=== PATIENT | male | born 1995 | race Caucasian/White ===

== ENCOUNTER 2019-07-14 | Emergency (ER) | payer SELFPAY ==
--- NOTE | 2019-07-14 22:59 | EDPHYS ---
Physician Documentation [facility] Name: Amado Murray Age: 24 yrs Sex: Male : 1995 Arrival Date: 07/14/2019 Time: 17:03 Bed 15 Private MD: ED Physician Breezy Cruz HPI: 07/14 17:30 This 24 yrs old Male presents to ER via Ambulatory with complaints of cp Medication Refill. 17:30 The patient presents to the emergency department requesting refill(s) for: Zyprexa and cp Trileptal. The patient chronically suffers from Bipolar Disorder. Patient reports running out of Zyprexa and Trileptal medications 1 week ago. Has appt tomorrow. Denies any suicidal or homicidal ideations, denies visual or auditory hallucinations. Historical: - Allergies: 17:10 No Known Allergies; sv - PMHx: 17:10 Bipolar disorder; ADD/ADHD; sv - PSHx: 17:10 None; sv - Immunization history:: Adult Immunizations up to date. - Coronavirus screen:: The patient has NOT traveled to [place] in the past 14 days. Proceed with normal triage process as indicated. The patient has NOT had contact with known/suspected case of Coronavirus? Proceed with normal triage procedures. - Social history:: Smoking status: Patient denies any tobacco usage or history of. - Ebola Screening: : No symptoms or risks identified at this time. ROS: 17:33 Eyes: Negative for injury, pain, redness, and discharge. cp 17:33 Constitutional: Negative for chills, fever, poor PO intake. 17:33 ENT: Negative for drainage from ear(s), ear pain, sore throat, difficulty swallowing, difficulty handling secretions. 17:33 Cardiovascular: Negative for chest pain, palpitations. 17:33 Respiratory: Negative for cough, shortness of breath, wheezing. 17:33 Abdomen/GI: Negative for abdominal pain, vomiting, diarrhea, constipation. 17:33 Skin: Negative for rash. 17:33 Neuro: Negative for altered mental status, headache. 17:33 Psych: Negative for auditory hallucinations, visual hallucinations, homicidal ideation, suicide gesture, suicidal ideation. 17:33 All other systems are negative. Exam: 17:34 Head/Face: Normocephalic, atraumatic. cp 17:34 Constitutional: The patient appears in no acute distress, alert, awake, non-toxic, well developed, well nourished. 17:34 Eyes: Periorbital structures: appear normal, Pupils: equal, round, and reactive to light and accomodation, Extraocular movements: intact throughout, Conjunctiva: normal, no exudate, no injection, Lids and lashes: appear normal, bilaterally. 17:34 ENT: External ear(s): are unremarkable, Nose: is normal, Mouth: Lips: moist, Oral mucosa: pink and intact, moist, Posterior pharynx: is normal, airway is patent. 17:34 Chest/axilla: Inspection: normal, Palpation: is normal, no crepitus, no tenderness. 17:34 Cardiovascular: Rate: normal, Rhythm: regular. 17:34 Respiratory: the patient does not display signs of respiratory distress, Respirations: normal, no use of accessory muscles, labored breathing, is not present, Breath sounds: are clear throughout, no decreased breath sounds. 17:34 Abdomen/GI: Exam negative for discomfort, distension, guarding, Inspection: abdomen appears normal. 17:34 Neuro: Orientation: to person, place \T\ time. Mentation: is normal, Cerebellar function: is grossly normal, Motor: moves all fours, strength is normal, Sensation: is normal, Gait: is steady, at a normal pace, without difficulty. Vital Signs: 17:10 BP 152 / 102; Pulse 80; Resp 16; Temp 97.3; Pulse Ox 100% ; Weight 79.38 kg; Height 5 sv ft. 11 in. (180.34 cm); 17:43 BP 146 / 87; Pulse 76; Resp 18; Pulse Ox 100% on R/A; Pain 0/10; em 17:10 Body Mass Index 24.41 (79.38 kg, 180.34 cm) sv MDM: 17:28 Patient medically screened. cp 17:39 Data reviewed: vital signs, nurses notes, and as a result, I will discharge patient. cp Administered Medications: No medications were administered Disposition: 07/15 06:52 Co-signature as Attending Physician, Breezy Cruz MD I agree with the assessment and kdr plan of care. Disposition: 07/14/19 17:39 Discharged to Home. Impression: Patient's intentional underdosing of medication regimen for other reason. - Condition is Stable. - Prescriptions for Zyprexa 5 mg Oral tablet - take 1 tablet by ORAL route once daily in the evening; 20 tablet. Trileptal 300 mg Oral Tablet - take 1 tablet by ORAL route every 12 hours; 60 tablet. - Medication Reconciliation Form, Thank You Letter, Antibiotic Education, Prescription Opioid Use form. - Follow up: Private Physician; When: Tomorrow; Reason: Recheck today's complaints. - Problem is chronic. - Symptoms are unchanged. Signatures: Yaritza Parsons RN RN sv Breezy Cruz MD MD kdr Sherwin Hilton RN RN em Carloz Mccollum PA PA cp Corrections: (The following items were deleted from the chart) 07/14 17:55 17:39 07/14/2019 17:39 Discharged to Home. Impression: Patient's intentional em underdosing of medication regimen for other reason. Condition is Stable. Prescriptions for Zyprexa 5 mg Oral tablet - take 1 tablet by ORAL route once daily in the evening; 20 tablet, Trileptal 300 mg Oral Tablet - take 1 tablet by ORAL route every 12 hours; 60 tablet. and Forms are Medication Reconciliation Form, Thank You Letter, Antibiotic Education, Prescription Opioid Use. Follow up: Private Physician; When: Tomorrow; Reason: Recheck today's complaints. Problem is chronic. Symptoms are unchanged. cp
--- NOTE | 2019-07-14 22:59 | ER ---
Nurse's Notes [facility] Name: Amado Murray Age: 24 yrs Sex: Male : 1995 Arrival Date: 07/14/2019 Time: 17:03 Bed 15 Private MD: Diagnosis: Patient's intentional underdosing of medication regimen for other reason Presentation: 07/14 17:08 Presenting complaint: Patient states: has been out of his Zyprexa 5 mg nightly and sv Trileptal 300 mg Q6h and is supposed to see [facility] tomorrow but isn't feeling well today. Transition of care: patient was not received from another setting of care. Onset of symptoms was July 14, 2019. Care prior to arrival: None. 17:08 Method Of Arrival: Ambulatory sv 17:08 Acuity: IFTIKHAR 4 sv 17:37 Risk Assessment: Do you want to hurt yourself or someone else? Patient reports no em desire to harm self or others. Initial Sepsis Screen: Does the patient meet any 2 criteria? No. Patient's initial sepsis screen is negative. Does the patient have a suspected source of infection? No. Patient's initial sepsis screen is negative. Triage Assessment: 17:11 General: Appears in no apparent distress. comfortable, Behavior is calm, cooperative, sv appropriate for age. Pain: Denies pain. Neuro: Level of Consciousness is awake, alert, obeys commands, Gait is steady. Respiratory: Respiratory effort is even, unlabored. Historical: - Allergies: 17:10 No Known Allergies; sv - PMHx: 17:10 Bipolar disorder; ADD/ADHD; sv - PSHx: 17:10 None; sv - Immunization history:: Adult Immunizations up to date. - Coronavirus screen:: The patient has NOT traveled to [place] in the past 14 days. Proceed with normal triage process as indicated. The patient has NOT had contact with known/suspected case of Coronavirus? Proceed with normal triage procedures. - Social history:: Smoking status: Patient denies any tobacco usage or history of. - Ebola Screening: : No symptoms or risks identified at this time. Screenin:36 Abuse screen: Denies threats or abuse. Nutritional screening: No deficits noted. em Tuberculosis screening: No symptoms or risk factors identified. Fall Risk None identified. Assessment: 17:28 General: Appears in no apparent distress. comfortable, Behavior is calm, cooperative, em appropriate for age, ran out of medications about a week ago, has follow up appointment tomororw. Pain: Denies pain. Neuro: Level of Consciousness is awake, alert, obeys commands, Oriented to person, place, time, situation, Appropriate for age. Cardiovascular: Capillary refill < 3 seconds Patient's skin is warm and dry. Respiratory: Airway is patent Respiratory effort is even, unlabored, Respiratory pattern is regular, symmetrical. Derm: Skin is intact, is healthy with good turgor, Skin is pink, warm \T\ dry. Musculoskeletal: Capillary refill < 3 seconds, Range of motion: intact in all extremities. Vital Signs: 17:10 BP 152 / 102; Pulse 80; Resp 16; Temp 97.3; Pulse Ox 100% ; Weight 79.38 kg; Height 5 sv ft. 11 in. (180.34 cm); 17:43 BP 146 / 87; Pulse 76; Resp 18; Pulse Ox 100% on R/A; Pain 0/10; em 17:10 Body Mass Index 24.41 (79.38 kg, 180.34 cm) sv ED Course: 17:03 Patient arrived in ED. as 17:09 Triage completed. sv 17:10 Arm band placed on. sv 17:22 Sherwin Hilton, RN is Primary Nurse. em 17:27 Carloz Mccollum PA is PHCP. cp 17:27 Breezy Cruz MD is Attending Physician. cp 17:36 Patient has correct armband on for positive identification. Call light in reach. em 17:52 No provider procedures requiring assistance completed. Patient did not have IV access em during this emergency room visit. Administered Medications: No medications were administered Outcome: 17:39 Discharge ordered by MD. cp 17:52 Discharged to home ambulatory. em 17:52 Condition: good 17:52 Discharge instructions given to patient, Instructed on discharge instructions, follow up and referral plans. medication usage, Demonstrated understanding of instructions, follow-up care, medications, Prescriptions given X 2. 17:55 Patient left the ED. em Signatures: Yaritza Parsons RN RN Sherwin Hilton RN RN em Marcia Butler as Carloz Mccollum PA PA cp
== END 2019-07-14 17:55 | disposition home or self-care (01) ==
CPT/HCPCS: 99282

== ENCOUNTER 2019-07-20 08:06 | Emergency (ER) | payer SELFPAY ==
[2019-07-20 08:31] LABS: Urine Blood NEGATIVE (NEG); Urine Glucose NEGATIVE (NEG); Urine Protein NEGATIVE (NEG)
[2019-07-20] MEDS ORDERED: LORazepam 2 MG/ML VIAL ONE (08:47)
[2019-07-20] MEDS ORDERED: NA CHLORIDE 0.9% 1,000 ML ONE ×2 (08:47→21:06)
[2019-07-20 08:50] LABS: Basophils % 0.7 % (0-1.3); Hematocrit 47.6 % (39.6-49.0); Lymphocytes % 29.3 % (15.3-44.8); MPV 7.9 fL (7.6-11.3); RBC Red Blood Cell Count 5.61 M/uL (4.33-5.43)
[2019-07-20] MEDS ORDERED: DIPHENHYDRAMINE 50 MG/ML VIAL ONE (08:54)
[2019-07-20 08:59] LABS: Barbiturates NEGATIVE (NEGATIVE); Benzodiazepines NEGATIVE (NEGATIVE); Cocaine POSITIVE (NEGATIVE); METHAMPHETAM NEGATIVE (NEGATIVE); Methadone NEGATIVE (NEGATIVE); Opiates NEGATIVE (NEGATIVE); Phencyclidine NEGATIVE (NEGATIVE); THC Cannibis NEGATIVE (NEGATIVE)
[2019-07-20] MEDS ORDERED: dexAMETHasone 4 MG/ML VIAL ONE (09:17)
[2019-07-20 09:31] LABS: ALT/SGPT 27 U/L (12-78); AST/SGOT 27 U/L (15-37); Albumin 4.4 g/dL (3.4-5.0); Alkaline Phosphatase 80 U/L (45-117); BUN Blood Urea Nitrogen 8 mg/dL (7-18); Bicarbonate 18 mmol/L (21-32); Bilirubin Direct < 0.1 mg/dL (0-0.2); Bilirubin Total 0.3 mg/dL (0.2-1.0); Glucose Level 109 mg/dL (74-106); Potassium 3.1 mmol/L (3.5-5.1); Protein, Total 8.5 g/dL (6.4-8.2); Sodium Level 142 mmol/L (136-145)
[2019-07-20] MEDS ORDERED: POTASSIUM CL 40 MEQ in NA CHLORIDE 0.9% 1,000 ML IV ONE (10:00)
--- NOTE | 2019-07-20 15:33 | EKG ---
Test Date: 2019-07-20 Test Time: 09:13:30 Control Officer: ERROL MEASUREMENT RESULTS: Intervals: Rate: 111 MD: 126 QRSD: 82 QT: 338 QTc: 459 [place]: P: 66 MD: 126 QRS: 62 T: 36 INTERPRETIVE STATEMENTS: Sinus tachycardia Right atrial enlargement Nonspecific ST abnormality Abnormal ECG No previous ECG available for comparison Electronically Signed On 07-20-19 15:32:27 EMERGENCY DISPATCH OPERATOR by Ronald Browne
[2019-07-21] MEDS ORDERED: DIPHENHYDRAMINE 50 MG/ML VIAL ONE (01:38)
[2019-07-21] MEDS ORDERED: LORazepam 2 MG/ML VIAL ONE (01:38)
--- NOTE | 2019-07-21 18:54 | EDPHYS ---
Physician Documentation [facility] Name: Amado Murray Age: 24 yrs Sex: Male : 1995 Arrival Date: 07/20/2019 Time: 08:09 Bed 18 Private MD: ED Physician Rm Alfonso HPI: 07/19 08:24 This 24 yrs old Male presents to ER via Ambulatory with complaints of Psych snw Problem. 08:24 The patient presents to the emergency department with anxiety, depression, over a snw relationship, a history of substance abuse, suicide ideation, but the patient has no formulated plan. Onset: The symptoms/episode began/occurred 2 month(s) ago, and became persistent. Past psychiatric history: Prior diagnosis: addiction history, bipolar disorder, depression, Psychiatric medications include: Zyprexa, trazadone, Primary psychiatric physician: the patient does not have a primary psychiatric physician, it is unknown whether or not the patient has had a prior suicide gesture, the patient has a previous inpatient psychiatric history, 2 month(s) ago, at [facility] - released post tx to Mom. Living with her currently, not "working out". Associated signs and symptoms: Pertinent positives; depression, substance abuse, suicide ideation. Severity of symptoms: At their worst the symptoms were moderate in the emergency department the symptoms are unchanged. The patient has experienced similar episodes in the past. It is unknown whether or not the patient has recently seen a physician. 08:28 Drinking x 4 hours per report, walked to ED, supposed to be living with his Mom. snw Historical: - Allergies: 08:24 No Known Allergies; ss - Home Meds: 08:24 Trileptal oral oral [Active]; Zyprexa Oral [Active]; ss - PMHx: 08:24 ADD/ADHD; Bipolar disorder; ss - PSHx: 08:24 None; ss - Immunization history:: Adult Immunizations up to date. - Social history:: Smoking status: Patient denies any tobacco usage or history of. ROS: 08:24 Constitutional: Negative for fever, chills, and weight loss, Eyes: Negative for injury, snw pain, redness, and discharge, ENT: Negative for injury, pain, and discharge, Neck: Negative for injury, pain, and swelling, Cardiovascular: Negative for chest pain, palpitations, and edema, Respiratory: Negative for shortness of breath, cough, wheezing, and pleuritic chest pain, Abdomen/GI: Negative for abdominal pain, nausea, vomiting, diarrhea, and constipation, Back: Negative for injury and pain, : Negative for injury, bleeding, discharge, and swelling, MS/Extremity: Negative for injury and deformity, Skin: Negative for injury, rash, and discoloration, Neuro: Negative for headache, weakness, numbness, tingling, and seizure. 08:24 Psych: Positive for anxiety, depression, insomnia, suicidal ideation. Exam: 08:23 Constitutional: This is a well developed, well nourished patient who is awake, alert, snw and in no acute distress. Head/Face: Normocephalic, atraumatic. Eyes: Pupils equal round and reactive to light, extra-ocular motions intact. Lids and lashes normal. Conjunctiva and sclera are non-icteric and not injected. Cornea within normal limits. Periorbital areas with no swelling, redness, or edema. 08:23 Neck: Trachea midline, no thyromegaly or masses palpated, and no cervical lymphadenopathy. Supple, full range of motion without nuchal rigidity, or vertebral point tenderness. No Meningismus. Chest/axilla: Normal chest wall appearance and motion. Nontender with no deformity. No lesions are appreciated. Respiratory: Lungs have equal breath sounds bilaterally, clear to auscultation and percussion. No rales, rhonchi or wheezes noted. No increased work of breathing, no retractions or nasal flaring. Abdomen/GI: Soft, non-tender, with normal bowel sounds. No distension or tympany. No guarding or rebound. No evidence of tenderness throughout. Back: No spinal tenderness. No costovertebral tenderness. Full range of motion. Skin: Warm, dry with normal turgor. Normal color with no rashes, no lesions, and no evidence of cellulitis. 08:23 MS/ Extremity: Pulses equal, no cyanosis. Neurovascular intact. Full, normal range of motion. Neuro: Awake and alert, GCS 15, oriented to person, place, time, and situation. Cranial nerves II-XII grossly intact. Motor strength 5/5 in all extremities. Sensory grossly intact. Cerebellar exam normal. Normal gait. 08:23 ENT: Nose: is normal, Posterior pharynx: erythema, that is moderate. 08:23 Cardiovascular: Rate: tachycardic, Rhythm: regular, Pulses: no pulse deficits are appreciated. 08:23 Psych: Behavior/mood is anxious, suicidal, depressed, Affect is calm, Oriented to person, place, time, Patient having thoughts of suicide. Denies suicidal plan. no sleep x 24 hours. Vital Signs: 08:10 BP 165 / 95; Pulse 131; Resp 20; Temp 97.7; Pulse Ox 99% ; Weight 81.65 kg; Height 5 ms ft. 11 in. (180.34 cm); Pain 0/10; 08:19 BP 165 / 95; Pulse 131; Resp 16; Pulse Ox 96% on R/A; Weight 81.65 kg; Height 5 ft. 11 ss in. (180.34 cm); Pain 0/10; 08:57 Pulse 117; Pulse Ox 96% on R/A; ss 15:44 BP 136 / 74; Pulse 80; Resp 18; Temp 98.9; Pulse Ox 96% on R/A; Pain 0/10; mg2 19:00 BP 133 / 79; Pulse 79; Resp 16; Temp 97.6; Pulse Ox 93% ; Pain 0/10; jv1 /03 01:30 BP 130 / 80; Pulse 80; Resp 18; Temp 98; jv1 13:30 BP 128 / 73; Pulse 87; Resp 17; Temp 97.9(O); Pulse Ox 99% on R/A; mh5 18:00 BP 122 / 78; Pulse 80; Resp 18; Temp 98; Pulse Ox 100% on R/A; mg2 07/19 08:19 Body Mass Index 25.10 (81.65 kg, 180.34 cm) ss MDM: 07/19 08:14 Patient medically screened. hallie 14:34 Data reviewed: vital signs, nurses notes. Data interpreted: Pulse oximetry: on room air snw is 96 %. Interpretation: acceptable. Counseling: I had a detailed discussion with the patient and/or guardian regarding: the historical points, exam findings, and any diagnostic results supporting the discharge/admit diagnosis, lab results. Other consultation: [facility] contacted, ETOH down to 78, potassium up to 4.5. 16:16 Response to treatment: the patient's symptoms have markedly improved after treatment, snw [facility] personnel here for assessment. 17:11 Transition of care: After a detail discussion of the patient's case, care is snw transferred to [facility] [place]. Special discussion: recommendation for inpatient tx, continued SI with plan to walk out into traffic. Pt sleeping in no distress. Placed on waiting list at [facility]. Info faxed to other area psych facilities.. 07/20 02:38 Transition of care: After a detail discussion of the patient's case, care is jmm transferred to Kaveh Moya MD. 16:09 ED course: pt resting in no distress with normal vs, ate most of lunch tray, awaiting snw supper tray. No voiced complaints. 17:38 ED course: Pt no longer with desire to harm himself, feels calm. Wants to call Mom and snw return to her home. Mom agrees to provide safe environment and will help pt RTED prn decompensation.. 17:43 Transition of care: After a detail discussion of the patient's case, care is snw transferred to Rm Alfonso MD. 07/19 08:23 Order name: Acetaminophen; Complete Time: 09:38 snw 07/19 08:23 Order name: Basic Metabolic Panel; Complete Time: 09:38 snw 07/19 08:23 Order name: CBC with Diff; Complete Time: 08:58 snw 07/19 08:23 Order name: ETOH Level; Complete Time: 09:02 snw 07/19 08:23 Order name: Hepatic Function; Complete Time: 09:38 snw 07/19 08:23 Order name: PT-INR; Complete Time: 09:02 snw 07/19 08:23 Order name: Ptt, Activated; Complete Time: 09:02 snw 07/19 08:23 Order name: Salicylate; Complete Time: 09:14 snw 07/19 08:23 Order name: Urine Drug Screen; Complete Time: 09:02 snw 07/19 08:23 Order name: Urine Dipstick--Ancillary (enter results) bd 07/19 08:24 Order name: TSH; Complete Time: 09:38 snw 07/19 13:18 Order name: ETOH Level; Complete Time: 14:29 snw 07/19 13:18 Order name: Potassium; Complete Time: 14:29 snw 07/19 08:23 Order name: EKG; Complete Time: 08:24 snw 07/19 08:23 Order name: EKG - Nurse/Tech; Complete Time: 09:20 snw 07/19 08:23 Order name: IV Saline Lock; Complete Time: 08:40 snw 07/19 09:40 Order name: Diet Finger Food; Complete Time: 09:41 snw 07/20 07:09 Order name: Diet Finger Food; Complete Time: 07:09 5 07/20 09:50 Order name: Diet Finger Food; Complete Time: 09:51 mh5 07/20 11:41 Order name: Diet Finger Food; Complete Time: 11:42 bd 07/20 16:04 Order name: Diet Finger Food; Complete Time: 16:05 mg2 07/19 08:23 Order name: Labs collected and sent; Complete Time: 08:41 snw 07/19 08:23 Order name: Urine Dipstick-Ancillary (obtain specimen); Complete Time: 08:41 snw 07/19 14:36 Order name: consult Order-Center ([facility] snw Administered Medications: 07/19 08:45 Drug: NS 0.9% 1000 ml Route: IV; Rate: 1 bolus; Site: right antecubital; ss 09:40 Follow up: Response: No adverse reaction; IV Status: Completed infusion ca1 08:48 Drug: Benadryl 25 mg Route: IVP; Site: right antecubital; ss 11:23 Follow up: Response: No adverse reaction; Marked relief of symptoms ca1 08:50 Drug: Ativan 1 mg Route: IVP; Site: right antecubital; ss 09:30 Follow up: Response: No adverse reaction; Anxiety decreased ca1 09:15 CANCELLED (Duplicate Order): Decadron - Dexamethasone 10 mg IVP once snw 09:23 Drug: Decadron - Dexamethasone 8 mg Route: IVP; Site: right antecubital; ss 10:00 Follow up: Response: No adverse reaction; Marked relief of symptoms ca1 10:38 Drug: NS 0.9% with KCl 40 mEq/L 1000 ml Route: IV; Rate: 300 ml/hr; Site: right ca1 antecubital; 07/20 19:33 Follow up: Response: No adverse reaction; IV Status: Completed infusion 07/19 12:45 Drug: NS 0.9% 1000 ml Route: IV; Rate: 125 ml/hr; Site: right antecubital; mg2 07/20 01:37 Drug: diphenhydrAMINE 25 mg Route: IVP; Site: left forearm; jv1 02:30 Follow up: Response: No adverse reaction jv1 01:38 Drug: Ativan 1 mg Route: IVP; Site: left femoral; jv1 02:20 Follow up: Response: No adverse reaction jv1 Disposition: 20:16 Co-signature as Attending Physician, Rm Alfonso MD I agree with the assessment and tw4 plan of care. Disposition: 07/21/19 18:53 Discharged to Home. Impression: Bipolar disorder, current episode depressed, mild, Other psychoactive substance abuse - A\\T\\Ox3, Acute stress reaction - Improved. - Condition is Stable. - Discharge Instructions: Bipolar Disorder, Stress and Stress Management, Psychosis. - Prescriptions for Zyprexa 10 mg Oral Tablet - take 1 tablet by ORAL route once daily; 20 tablet. carbamazepine 300 mg Oral capsule, ER multiphase 12 hr - take 1 capsule by ORAL route 2 times per day; 14 capsule. - Medication Reconciliation Form, Thank You Letter, Antibiotic Education, Prescription Opioid Use form. - Follow up: Emergency Department; When: As needed; Reason: Worsening of condition. Follow up: Private Physician; When: 1 - 2 days; Reason: Recheck today's complaints, Continuance of care, Re-evaluation by your physician. Signatures: Dispatcher [employer] EDMS Carloz Torres MD MD cha Therrien, Shelly, ANDREW-C RING ATTACHER-Chu Epperson PA PA jmm Smirch, Shelby, RN RN Vinita Shanks Rm Alfonso MD MD tw4 Miguel Ángel Landaverde RN RN mg2 Kim Norton RN RN jv1 Karine Kessler RN RN ca1 Corrections: (The following items were deleted from the chart) 07/19 09:15 09:13 Decadron - Dexamethasone 10 mg IVP once ordered. snw snw 07/20 19:33 18:53 07/21/2019 18:53 Discharged to Home. Impression: Bipolar disorder, current wh episode depressed, mild; Other psychoactive substance abuse - A\\T\\Ox3; Acute stress reaction - Improved. Condition is Stable. Discharge Instructions: Bipolar Disorder, Stress and Stress Management, Psychosis. Prescriptions for Zyprexa 10 mg Oral Tablet - take 1 tablet by ORAL route once daily; 20 tablet. and Forms are Medication Reconciliation Form, Thank You Letter, Antibiotic Education, Prescription Opioid Use. Follow up: Emergency Department; When: As needed; Reason: Worsening of condition. Follow up: Private Physician; When: 1 - 2 days; Reason: Recheck today's complaints, Continuance of care, Re-evaluation by your physician. tw4
--- NOTE | 2019-07-21 18:54 | ER ---
Nurse's Notes [facility] Name: Aamdo Murray Age: 24 yrs Sex: Male : 1995 Arrival Date: 07/20/2019 Time: 08:09 Bed 18 Private MD: Diagnosis: Bipolar disorder, current episode depressed, mild;Other psychoactive substance abuse-A\\T\\Ox3;Acute stress reaction-Improved Presentation: 07/19 08:19 Chief complaint: Patient states: Feeling depressed for the past few weeks. Pt reports ss he has been drinking the past four hours and was feeling a "little suicidal", but did not want to harm himself so he walked to the ED for help. Hx of bipolar and ADHD. Coronavirus screen: The patient has NOT traveled to [place] in the past 14 days. Proceed with normal triage procedures. Ebola Screen: Patient denies exposure to infectious person. Patient denies travel to an Ebola-affected area in the 21 days before illness onset. 08:19 Method Of Arrival: Ambulatory ss 08:19 Acuity: IFTIKHAR 2 ss 08:19 Initial Sepsis Screen: Does the patient meet any 2 criteria? No. Patient's initial ss sepsis screen is negative. Does the patient have a suspected source of infection? No. Patient's initial sepsis screen is negative. Risk Assessment: Do you want to hurt yourself or someone else? Patient reports desire/thoughts of hurting themselves or someone else. Provider notified. 09:00 Onset of symptoms was July 20, 2019. ca1 Historical: - Allergies: 08:24 No Known Allergies; ss - Home Meds: 08:24 Trileptal oral oral [Active]; Zyprexa Oral [Active]; ss - PMHx: 08:24 ADD/ADHD; Bipolar disorder; ss - PSHx: 08:24 None; ss - Immunization history:: Adult Immunizations up to date. - Social history:: Smoking status: Patient denies any tobacco usage or history of. Screenin:48 Abuse screen: Denies threats or abuse. Denies injuries from another. Nutritional ss screening: No deficits noted. Tuberculosis screening: Never had TB. Fall Risk None identified. Assessment: 08:10 General: Appears uncomfortable, Behavior is anxious, Denies fever, feeling ill, ss fatigue, chills. General: Smells of alcohol. Pain: Denies pain. Neuro: Level of Consciousness is awake, alert, obeys commands, Oriented to person, place, time, situation, Import/Export Specialist are equal bilaterally. Cardiovascular: Capillary refill < 3 seconds is brisk in bilateral fingers. Respiratory: Airway is patent Respiratory effort is even, unlabored, Respiratory pattern is regular, symmetrical, Breath sounds are clear bilaterally. Denies cough, shortness of breath labored breathing, pain with respiration, pain with cough, pain with movement. GI: Abdomen is non-distended, Patient currently denies abdominal pain, diarrhea, nausea, vomiting. : No signs and/or symptoms were reported regarding the genitourinary system. Denies burning with urination, urinary frequency. EENT: Nares are clear Oral mucosa is moist. Derm: Rash noted that is redness noted to face, neck and upper back. Musculoskeletal: Circulation, motion, and sensation intact. Range of motion: intact in all extremities, Swelling absent. 08:45 Respiratory: Airway is patent Respiratory effort is even, unlabored, Respiratory ss pattern is regular, symmetrical. 08:48 Reassessment: Redness to face, neck and upper back seems to have worsened. Is now ss present on hands. Is not raised. Shelia Donis, TEMPERING MACHINE OPERATOR notified. PT states, "I think I'm having an allergic reaction to the alcohol. Denies any previous reaction when drinking. Still denies any other drug use that may have caused reaction. Benadryl ordered and administered. Pt denies difficulty breathing. 11:12 Reassessment: Patient appears in no apparent distress at this time. Pt resting, eyes ca1 closed. Easily awaken. Equal and unlabored respiration. Skin pink, warm and dry. 12:50 Reassessment: Patient appears in no apparent distress at this time. meal served. sitter mg2 at beside. 13:50 Reassessment: Patient appears in no apparent distress at this time. patient sleeping on mg2 bed. sitter at bedside. 15:45 Reassessment: Patient appears in no apparent distress at this time. Patient is alert, mg2 oriented x 3, equal unlabored respirations, skin warm/dry/pink. 16:49 Reassessment: [facility] came and assessed the patient. awaiting for recommendation. mg2 17:27 Reassessment: Patient appears in no apparent distress at this time. meal served. mg2 19:06 Reassessment: Patient appears in no apparent distress at this time. Patient is alert, mg2 oriented x 3, equal unlabored respirations, skin warm/dry/pink. 19:30 General: Appears in no apparent distress. comfortable, Behavior is calm, cooperative. jv1 Pain: Denies pain. Neuro: Level of Consciousness is awake, alert, obeys commands, Oriented to person, place, time, situation, Import/Export Specialist are equal bilaterally. Cardiovascular: Denies chest pain, Capillary refill < 3 seconds is brisk in bilateral fingers. Respiratory: Airway is patent Respiratory effort is even, unlabored, Respiratory pattern is regular, symmetrical, Breath sounds are clear bilaterally. Denies cough, shortness of breath labored breathing, pain with respiration, pain with cough, pain with movement. GI: Abdomen is non-distended, Patient currently denies abdominal pain, diarrhea, nausea, vomiting. : No signs and/or symptoms were reported regarding the genitourinary system. Denies burning with urination, urinary frequency. Derm: Skin is intact, is healthy with good turgor. Musculoskeletal: Circulation, motion, and sensation intact. Range of motion: intact in all extremities. 20:30 Reassessment: Patient appears in no apparent distress at this time. Patient is alert, jv1 oriented x 3, equal unlabored respirations, skin warm/dry/pink. sitter with pt. 21:30 Reassessment: Patient appears in no apparent distress at this time. Patient is alert, jv1 oriented x 3, equal unlabored respirations, skin warm/dry/pink. sitter with pt. 23:30 Reassessment: Patient appears in no apparent distress at this time. No changes from jv1 previously documented assessment. Patient and/or family updated on plan of care and expected duration. Pain level reassessed. Patient is alert, oriented x 3, equal unlabored respirations, skin warm/dry/pink. sitter with pt. 03 00:30 Reassessment: Patient appears in no apparent distress at this time. No changes from jv1 previously documented assessment. Patient and/or family updated on plan of care and expected duration. Pain level reassessed. Patient is alert, oriented x 3, equal unlabored respirations, skin warm/dry/pink. sitter with pt. 01:30 Reassessment: Patient and/or family updated on plan of care and expected duration. Pain jv1 level reassessed. Patient is alert, oriented x 3, equal unlabored respirations, skin warm/dry/pink. pt removed his IV and said he wanted to go home. Provider went and talked with the pt, pt stated he does not want to hurt himself anymore but he wants to go. Provider said it would be best if he waits until the morning. Pt agreed to have another IV reinserted and be given medicines as ordered. 02:30 Reassessment: Patient appears in no apparent distress at this time. Patient and/or jv1 family updated on plan of care and expected duration. Pain level reassessed. Patient is alert, oriented x 3, equal unlabored respirations, skin warm/dry/pink. sitter with pt. 03:30 Reassessment: Patient appears in no apparent distress at this time. No changes from jv1 previously documented assessment. Patient and/or family updated on plan of care and expected duration. Pain level reassessed. Patient is alert, oriented x 3, equal unlabored respirations, skin warm/dry/pink. sitter with pt. 04:30 Reassessment: Patient appears in no apparent distress at this time. No changes from jv1 previously documented assessment. Patient and/or family updated on plan of care and expected duration. Pain level reassessed. Patient is alert, oriented x 3, equal unlabored respirations, skin warm/dry/pink. sitter with pt. 05:30 Reassessment: Patient appears in no apparent distress at this time. No changes from jv1 previously documented assessment. Patient and/or family updated on plan of care and expected duration. Pain level reassessed. Patient is alert, oriented x 3, equal unlabored respirations, skin warm/dry/pink. sitter with pt. 06:30 Reassessment: Patient appears in no apparent distress at this time. No changes from jv1 previously documented assessment. Patient and/or family updated on plan of care and expected duration. Pain level reassessed. Patient is alert, oriented x 3, equal unlabored respirations, skin warm/dry/pink. sitter with pt. 09:00 Reassessment: Patient appears in no apparent distress at this time. patient sleeping on mg2 bed. sitter at bedside. 10:02 Reassessment: patient sleeping. sitter at bedside. mg2 11:15 Reassessment: Patient appears in no apparent distress at this time. patient mg2 sleeping.sitter at bedside. 12:00 Reassessment: Patient appears in no apparent distress at this time. meal served. mg2 13:30 Reassessment: Patient appears in no apparent distress at this time. patient sleeping. mg2 14:30 Reassessment: Patient appears in no apparent distress at this time. Patient is alert, mg2 oriented x 3, equal unlabored respirations, skin warm/dry/pink. 16:30 Reassessment: Patient appears in no apparent distress at this time. Patient is alert, mg2 oriented x 3, equal unlabored respirations, skin warm/dry/pink. 17:30 Reassessment: patient wants to be discharged. he said he is not suicidal anymore. mg2 provider was informed and agreed the patient to be discharged as long there is someone like his mother to come and pick him up. mother was called and agreed to pick him up,. patient agreed about the plan. mother-felicia ) she said she will come in an hour,. 19:13 Reassessment: parents came to picker tender the patient. patient on good condition. no mg2 suicidal ideation. just waiting for the security to bring his property back to him. 19:32 Reassessment: Pt belongings was returned by Security. Psych: 07/19 08:15 Subjective: Patient's mood is sad, Delusions are denied, Hallucinations are denied ss Having thoughts of suicide. Denies suicidal plan. Objective: Patient is cooperative, Speech is normal, Affect is appropriate. Interventions: Removed personal items and placed in bag. Patient placed in hospital gown. Searched person for dangerous items. Urine collected and sent for urine drug test. Belonging list filled out. Suicide Risk Assessment: Sad Person Scale: Sex of patient: Male: Score 1 point. Age of patient: Score 1 point if patient 15-34. Depression: Score 1 point if signs of depression are present. Previous Attempt: Score 0 point if patient has not previously attempted suicide. Substance Abuse: Score 0 point if patient does not abuse alcohol or drugs. Rational Thinking: Score 0 point if patient has rational thinking. Social Support: Score 0 if social support is present/available. Organized Plan: Score 0 if patient did not have an organized plan in place. Relationship: Score 1 point if patient is , , , or for a single male Chronic Sickness: Score 1 point if patient has illness, chronic, debilitating, or severe. TOTAL POINTS: If total points are 5-6, proposed clinical action is to strongly consider hospitalization, depending upon confidence in the follow-up arrangement. Implement suicide precautions. Safety Checks: Personal items have been removed. Door is open. No visitors are present at this time. Pt denies substance abuse Patient uses Has been drinking the past four hours. prior to arrival. 07/20 19:15 Commitment: Patient will be a voluntary commitment. mg2 Vital Signs: 07/19 08:10 BP 165 / 95; Pulse 131; Resp 20; Temp 97.7; Pulse Ox 99% ; Weight 81.65 kg; Height 5 ms ft. 11 in. (180.34 cm); Pain 0/10; 08:19 BP 165 / 95; Pulse 131; Resp 16; Pulse Ox 96% on R/A; Weight 81.65 kg; Height 5 ft. 11 ss in. (180.34 cm); Pain 0/10; 08:57 Pulse 117; Pulse Ox 96% on R/A; ss 15:44 BP 136 / 74; Pulse 80; Resp 18; Temp 98.9; Pulse Ox 96% on R/A; Pain 0/10; mg2 19:00 BP 133 / 79; Pulse 79; Resp 16; Temp 97.6; Pulse Ox 93% ; Pain 0/10; jv1 07/20 01:30 BP 130 / 80; Pulse 80; Resp 18; Temp 98; jv1 13:30 BP 128 / 73; Pulse 87; Resp 17; Temp 97.9(O); Pulse Ox 99% on R/A; mh5 18:00 BP 122 / 78; Pulse 80; Resp 18; Temp 98; Pulse Ox 100% on R/A; mg2 07/19 08:19 Body Mass Index 25.10 (81.65 kg, 180.34 cm) ED Course: 07/19 08:09 Patient arrived in ED. mr 08:11 [facility]C [facility] snw 08:11 Carloz Torres MD is Attending Physician. snw 08:18 Gabriela Naranjo RN is Primary Nurse. ss 08:19 Arm band placed on right wrist. ss 08:21 Triage completed. ss 08:47 Initial lab(s) drawn, by me, sent to lab. Urine collected: clean catch specimen, clear, ms Amount Voided: 70mL. Inserted saline lock: 20 gauge in right antecubital area, using aseptic technique. Blood collected. 08:48 Patient has correct armband on for positive identification. Bed in low position. Call ss light in reach. Belongings given to security to keep in safe for duration of stay. Sitter remains with patient. Lights dimmed for comfort. Side rails up x 2. Placed in paper gown. 09:21 EKG done, by application support technician. reviewed by Carloz Torres MD. ms 09:31 EKG done, by application support technician. reviewed by Shelia ABAD. at1 14:33 contacted [facility], will send a screener to evaluate pt. bd 16:54 faxed chart to [facility], pt is on waiting list. per es. bd 17:02 faxed chart to [facility], [facility], [facility], [facility], [facility], [facility], [facility], [facility]. 17:29 No provider procedures requiring assistance completed. mg2 17:30 PHCP role handed off by Shelia Donis FNP-C [facility] 17:30 Chu Sanchez PA is PHCP. [facility] 23:45 called [facility] spoke with Will I told him I sent an exclusionary form. He stated they mw2 won't have beds till the morning. 07/20 07:14 Primary Nurse role handed off by Gabriela Naranjo RN bd 07:25 PHCP role handed off by Chu Sanchez PA sn 07:25 Shelia Donis FNP-C is PHCP. snw 10:01 spoke with Maria Eugenia at [facility], still no [facility] beds, no discharges bd expected at this time. 10:14 spoke with Gretta at [facility], pt is on wait list, no discharges bd at this time. 11:15 Miguel Ángel Landaverde, MARGOTH is Primary Nurse. mg2 17:43 Attending Physician role handed off by Carloz Torres MD snw 17:43 Rm Alfonso MD is Attending Physician. snw 19:15 IV discontinued, intact, bleeding controlled, No redness/swelling at site. Pressure mg2 dressing applied. Administered Medications: 07/19 08:45 Drug: NS 0.9% 1000 ml Route: IV; Rate: 1 bolus; Site: right antecubital; ss 09:40 Follow up: Response: No adverse reaction; IV Status: Completed infusion ca1 08:48 Drug: Benadryl 25 mg Route: IVP; Site: right antecubital; ss 11:23 Follow up: Response: No adverse reaction; Marked relief of symptoms ca1 08:50 Drug: Ativan 1 mg Route: IVP; Site: right antecubital; ss 09:30 Follow up: Response: No adverse reaction; Anxiety decreased ca1 09:15 CANCELLED (Duplicate Order): Decadron - Dexamethasone 10 mg IVP once snw 09:23 Drug: Decadron - Dexamethasone 8 mg Route: IVP; Site: right antecubital; ss 10:00 Follow up: Response: No adverse reaction; Marked relief of symptoms ca1 10:38 Drug: NS 0.9% with KCl 40 mEq/L 1000 ml Route: IV; Rate: 300 ml/hr; Site: right ca1 antecubital; 07/20 19:33 Follow up: Response: No adverse reaction; IV Status: Completed infusion 07/19 12:45 Drug: NS 0.9% 1000 ml Route: IV; Rate: 125 ml/hr; Site: right antecubital; mg2 07/20 01:37 Drug: diphenhydrAMINE 25 mg Route: IVP; Site: left forearm; jv1 02:30 Follow up: Response: No adverse reaction jv1 01:38 Drug: Ativan 1 mg Route: IVP; Site: left femoral; jv1 02:20 Follow up: Response: No adverse reaction jv1 Output: 07/19 15:00 Urine: 500ml (Voided); Total: 500ml. mg2 17:28 Urine: 800ml (Voided); Total: 1300ml. mg2 Outcome: 07/20 18:53 Discharge ordered by . tw4 19:15 Discharged to home ambulatory, with family. mg2 19:15 Condition: stable 19:15 Discharge instructions given to patient, family, Instructed on discharge instructions, follow up and referral plans. medication usage, Demonstrated understanding of instructions, follow-up care, medications, Prescriptions given X 2. 19:33 Patient left the ED. wh Signatures: Dirrim, Yeny bd Gagandeep, Shelia, DIABETES MANAGER-C DIABETES MANAGER-Csnw Chu Sanchez PA PA jmm Rivera, Mary Olga Whitmore Gabriela Soriano, RN RN ss Amanda Milton, cyber transport systems specialist EKG Tat1 Olga Butler mh5 Dimitris, Yousy Rm Alfonso MD MD tw4 Sebsatian Ignacio mw2 Miguel Ángel Landaverde, RN RN mg2 Kim Norton, RN RN jv1 AcKarine macias, RN RN ca1 Corrections: (The following items were deleted from the chart) 07/19 08:23 08:19 Risk Assessment: Do you want to hurt yourself or someone else? Patient reports no ss desire to harm self or others. 09:24 08:45 Reassessment: Redness to face, neck and upper back seems to have worsened. Is now ss present on hands. Is not raised. Shelia Donis, TEMPERING MACHINE OPERATOR notified. PT states, "I think I'm having an allergic reaction to the alcohol. Denies any previous reaction when drinking. Still denies any other drug use that may have caused reaction. Benadryl ordered and administered. Pt denies difficulty breathing. 16:50 16:49 Reassessment: Patient appears in no apparent distress at this time. patient mg2 sleeping on bed. sitter at bedside. mg2
[2019-07-21 21:40] VITALS: BP 122/78; TEMP 98; O2SAT 100
== END 2019-07-21 19:33 | disposition home or self-care (01) ==
LOC: ER 08:06
DX: F31.9 Bipolar disorder, unspecified (principal); F19.10 Other psychoactive substance abuse, uncomplicated; F43.0 Acute stress reaction; F90.9 Attention-deficit hyperactivity disorder, unspecified type
CPT/HCPCS: 36415; 80048; 80076; 80307; 80320; 80329; 81003; 84132; 84443; 85025; 85610; 85730; 93005; 96361; 96374; 96375; 99285; J1200; J7030

== ENCOUNTER 2019-08-07 03:29 | Emergency (ER) | payer SELFPAY ==
[2019-08-07] MEDS ORDERED: NA CHLORIDE 0.9% 0 ML ONE (03:47)
[2019-08-07] MEDS ORDERED: NA CHLORIDE 0.9% 1,000 ML ONE (03:50)
[2019-08-07 04:13] LABS: Basophils % 0.6 % (0-1.3); Hematocrit 46.9 % (39.6-49.0); Lymphocytes % 18.8 % (15.3-44.8); MPV 7.7 fL (7.6-11.3); RBC Red Blood Cell Count 5.52 M/uL (4.33-5.43)
[2019-08-07 04:16] LABS: Protime INR 0.96
[2019-08-07 04:26] LABS: Barbiturates NEGATIVE (NEGATIVE); Benzodiazepines NEGATIVE (NEGATIVE); Cocaine NEGATIVE (NEGATIVE); METHAMPHETAM NEGATIVE (NEGATIVE); Methadone NEGATIVE (NEGATIVE); Opiates NEGATIVE (NEGATIVE); Phencyclidine NEGATIVE (NEGATIVE); THC Cannibis POSITIVE (NEGATIVE)
[2019-08-07 04:32] LABS: ALT/SGPT 24 U/L (12-78); AST/SGOT 28 U/L (15-37); Albumin 4.2 g/dL (3.4-5.0); Alkaline Phosphatase 80 U/L (45-117); BUN Blood Urea Nitrogen 13 mg/dL (7-18); Bicarbonate 22 mmol/L (21-32); Bilirubin Direct < 0.1 mg/dL (0-0.2); Bilirubin Total 0.2 mg/dL (0.2-1.0); Glucose Level 92 mg/dL (74-106); Potassium 3.8 mmol/L (3.5-5.1); Protein, Total 8.6 g/dL (6.4-8.2); Sodium Level 141 mmol/L (136-145)
--- NOTE | 2019-08-07 05:27 | EDPHYS ---
Physician Documentation [facility] Name: Amado Murray Age: 24 yrs Sex: Male : 1995 Arrival Date: 08/07/2019 Time: 03:35 Bed 17 Private MD: PARRISH Physician Carloz Torres HPI: 08/06 03:44 This 24 yrs old Male presents to ER via EMS with complaints of Psych Problem. hallie 03:44 The patient presents to the emergency department with depression, psychosis. Onset: The hallie symptoms/episode began/occurred just prior to arrival. Past psychiatric history: Prior diagnosis: bipolar disorder. Associated signs and symptoms: The patient has no apparent associated signs or symptoms. Severity of symptoms: At their worst the symptoms were mild moderate in the emergency department the symptoms are unchanged. The patient has experienced similar episodes in the past, a few times. Historical: - Allergies: 03:37 No Known Allergies; sg - PMHx: 03:37 ADD/ADHD; Bipolar disorder; sg - PSHx: 03:37 None; sg - Immunization history:: Adult Immunizations not up to date. - Family history:: not pertinent. - Social history:: Smoking status: Patient/guardian denies using tobacco, Patient uses alcohol, patient/guardian reports recent binge of alcohol consumption. Patient/guardian denies using street drugs. ROS: 03:44 Constitutional: Negative for fever, chills, and weight loss, Eyes: Negative for injury, hallie pain, redness, and discharge, ENT: Negative for injury, pain, and discharge, Neck: Negative for injury, pain, and swelling, Cardiovascular: Negative for chest pain, palpitations, and edema, Respiratory: Negative for shortness of breath, cough, wheezing, and pleuritic chest pain, Abdomen/GI: Negative for abdominal pain, nausea, vomiting, diarrhea, and constipation, Back: Negative for injury and pain, : Negative for injury, bleeding, discharge, and swelling, MS/Extremity: Negative for injury and deformity, Skin: Negative for injury, rash, and discoloration, Neuro: Negative for headache, weakness, numbness, tingling, and seizure, Allergy/Immunology: Negative for hives, rash, and allergies, Endocrine: Negative for neck swelling, polydipsia, polyuria, polyphagia, and marked weight changes, Hematologic/Lymphatic: Negative for swollen nodes, abnormal bleeding, and unusual bruising. 03:44 Psych: Positive for depression. Exam: 03:44 Constitutional: This is a well developed, well nourished patient who is awake, alert, hallie and in no acute distress. Head/Face: Normocephalic, atraumatic. Eyes: Pupils equal round and reactive to light, extra-ocular motions intact. Lids and lashes normal. Conjunctiva and sclera are non-icteric and not injected. Cornea within normal limits. Periorbital areas with no swelling, redness, or edema. ENT: Nares patent. No nasal discharge, no septal abnormalities noted. Tympanic membranes are normal and external auditory canals are clear. Oropharynx with no redness, swelling, or masses, exudates, or evidence of obstruction, uvula midline. Mucous membranes moist. Neck: Trachea midline, no thyromegaly or masses palpated, and no cervical lymphadenopathy. Supple, full range of motion without nuchal rigidity, or vertebral point tenderness. No Meningismus. Chest/axilla: Normal chest wall appearance and motion. Nontender with no deformity. No lesions are appreciated. Cardiovascular: Regular rate and rhythm with a normal S1 and S2. No gallops, murmurs, or rubs. Normal PMI, no JVD. No pulse deficits. Respiratory: Lungs have equal breath sounds bilaterally, clear to auscultation and percussion. No rales, rhonchi or wheezes noted. No increased work of breathing, no retractions or nasal flaring. Abdomen/GI: Soft, non-tender, with normal bowel sounds. No distension or tympany. No guarding or rebound. No evidence of tenderness throughout. Back: No spinal tenderness. No costovertebral tenderness. Full range of motion. Male : Normal genitalia with no discharge or lesions. MS/ Extremity: Pulses equal, no cyanosis. Neurovascular intact. Full, normal range of motion. Neuro: Awake and alert, GCS 15, oriented to person, place, time, and situation. Cranial nerves II-XII grossly intact. Motor strength 5/5 in all extremities. Sensory grossly intact. Cerebellar exam normal. Normal gait. Psych: Awake, alert, with orientation to person, place and time. Behavior, mood, and affect are within normal limits. 03:44 Skin: Appearance: Temperature: warm, Moisture: dry, petechiae, not noted, ecchymosis, not noted, abscess, not appreciated, cellulitis, is not appreciated, induration, is not appreciated, injury, is not appreciated, no rash present. Turgor: is excellent. Vital Signs: 03:36 BP 133 / 88; Pulse 99; Resp 18; Temp 97.5; Pulse Ox 95% on R/A; Weight 81.65 kg; Height mg2 5 ft. 11 in. (180.34 cm); 06:42 BP 145 / 78; Pulse 80; Resp 18; Temp 98; Pulse Ox 100% on R/A; mg2 03:36 Body Mass Index 25.10 (81.65 kg, 180.34 cm) mg2 MDM: 03:43 Patient medically screened. [facility] 03:46 Data reviewed: vital signs, nurses notes, lab test result(s), EKG. [facility] 08/06 03:37 Order name: Acetaminophen [facility] 08/06 03:37 Order name: Basic Metabolic Panel [facility] 08/06 03:37 Order name: CBC with Diff; Complete Time: 04:27 [facility] 08/06 03:37 Order name: ETOH Level; Complete Time: 04:31 [facility] 08/06 03:37 Order name: Hepatic Function [facility] 08/06 03:37 Order name: PT-INR; Complete Time: 04:27 [facility] 08/06 03:37 Order name: Ptt, Activated; Complete Time: 04:27 [facility] 08/06 03:37 Order name: Salicylate; Complete Time: 04:31 [facility] 08/06 03:37 Order name: Urine Drug Screen; Complete Time: 04:31 [facility] 08/06 03:37 Order name: EKG; Complete Time: 03:38 [facility] 08/06 03:37 Order name: EKG - Nurse/Tech; Complete Time: 03:58 [facility] 08/06 03:37 Order name: IV Saline Lock; Complete Time: 04:02 [facility] 08/06 03:37 Order name: Labs collected and sent; Complete Time: 04:02 [facility] 08/06 03:37 Order name: Urine Dipstick-Ancillary (obtain specimen); Complete Time: 03:58 [facility] Administered Medications: 04:02 Drug: NS 0.9% 1000 ml Route: IV; Rate: 1 bolus; Site: right antecubital; 06:43 Follow up: Response: No adverse reaction; IV Status: Completed infusion; IV Intake: mg2 1000ml Disposition: 08/07/19 05:26 Discharged to Home. Impression: Alcohol abuse with intoxication, Bipolar disorder. - Condition is Stable. - Discharge Instructions: Alcohol Intoxication, Bipolar Disorder, Alcohol Intoxication, [id number]-Hccy, Alcohol Abuse and Nutrition. - Prescriptions for Zyprexa 10 mg Oral Tablet - take 1 tablet by ORAL route once daily; 14 tablet. oxcarbazepine 150 mg Oral tablet - take 1 tablet by ORAL route 2 times per day; 60 tablet. - Medication Reconciliation Form, Thank You Letter, Antibiotic Education, Prescription Opioid Use form. - Follow up: Private Physician; When: 2 - 3 days; Reason: Recheck today's complaints, Continuance of care, Re-evaluation by your physician. - Problem is new. - Symptoms have improved. Signatures: Dispatcher [employer] EDMando Bearden RN RN Carloz Garza MD MD cha Gardose, Michele, RN RN mg2 Corrections: (The following items were deleted from the chart) 06:56 05:26 08/07/2019 05:26 Discharged to Home. Impression: Alcohol abuse with intoxication; mg2 Bipolar disorder. Condition is Stable. Discharge Instructions: Alcohol Intoxication, Bipolar Disorder, Alcohol Intoxication, [id number], Alcohol Abuse and Nutrition. Prescriptions for Lamictal 100 mg Oral Tablet - take 1 tablet by ORAL route every 12 hours; 30 tablet, Zyprexa 10 mg Oral Tablet - take 1 tablet by ORAL route once daily; 14 tablet. and Forms are Medication Reconciliation Form, Thank You Letter, Antibiotic Education, Prescription Opioid Use. Follow up: Private Physician; When: 2 - 3 days; Reason: Recheck today's complaints, Continuance of care, Re-evaluation by your physician. Problem is new. Symptoms have improved. hallie
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
[2019-08-07 07:22] VITALS: BP 145/78; TEMP 98; O2SAT 100
--- NOTE | 2019-08-07 08:41 | EKG ---
Test Date: 2019-08-07 Test Time: 03:51:14 Manager Lvn: SWG MEASUREMENT RESULTS: Intervals: Rate: 93 MI: 122 QRSD: 80 QT: 342 QTc: 425 [place]: P: 33 MI: 122 QRS: 67 T: 44 INTERPRETIVE STATEMENTS: Normal sinus rhythm RSR' or QR pattern in V1 suggests right ventricular conduction delay Borderline ECG Compared to ECG 07/20/2019 09:13:30 RSR' in V1 or V2 now present Sinus tachycardia no longer present Atrial abnormality no longer present ST (T wave) deviation no longer present Electronically Signed On 08-07-19 08:40:57 CDT by Ronald Browne
== END 2019-08-07 06:56 | disposition home or self-care (01) ==
LOC: ER 03:29
DX: F10.129 Alcohol abuse with intoxication, unspecified (principal); F31.9 Bipolar disorder, unspecified
CPT/HCPCS: 36415; 80048; 80076; 80307; 80320; 80329; 85025; 85610; 85730; 93005; 96360; 96361; 99284; J7030